=== PATIENT | male | born 1980 | race American Indian/Alaskan Native ===

== ENCOUNTER 2021-08-27 15:21 | Emergency (ER) | payer SELFPAY ==
[2021-08-27] MEDS ORDERED: HYDROcodone/ACETAMINOPHEN 10-325MG TAB PO ONE (15:30)
--- NOTE | 2021-08-27 16:19 | Cat Scan Report ---
CT cervical spine wo con, CT head/brain wo con INDICATION: pain s/p heavy box fell on patient w/ near LOC. TECHNIQUE: CT head and cervical spine without contrast. All CT scans at this location are performed u sing CT dose reduction for ALARA by means of automated exposure control. COMPARISON: None. FINDINGS: HEAD: Intracranial: Roberts-white matter differentiation is maintained. No intracranial hemorrhage. No extra a xial collection.. No hydrocephalus. No herniation. Sinuses: Paranasal sinuses and mastoid air cells are essentially clear. Orbits: Globes are intact Calvarium: No acute fracture. CERVICAL: Alignment: Normal alignment. Vertebrae: No fracture. Vertebral body heights are preserved. C1 and C2 are congruent. Atlantooccipi bang joint is maintained. Spondylolysis: No significant spondylosis. Soft tissues: No prevertebral soft tissue thickening. Additional findings: No significant additional findings. IMPRESSION: 1. No acute intracranial abnormality. 2.No cervical spine fracture. Signer Name: Mike Cazares MD Signed: 08/27/2021 4:15 PM Workstation Name: [id number]
--- NOTE | 2021-08-27 16:23 | Emergency Department Report ---
ED Head Trauma HPI - General Chief complaint: Head Injury Stated complaint: 300 POUND BOX FELL ON HEAD AT WORK Time Seen by Provider: 08/27/21 15:30 Source: patient Mode of arrival: Ambulatory Limitations: No Limitations - History of Present Illness Initial comments: This is a 41-year-old male nontoxic, well nourished in appearance, no acute signs of distress presents to the ED with c/o of acute headache and neck pain x1 day. Patient state that a heavy box weighing about 300 pounds fell to left- sided head yesterday at work. Patient stated had a near LOC experience. Patient denies any other complaints or symptoms. Patient denies any other injuries or trauma. Patient describes headache as diffuse with level of 8 out of 10. Patient denies thunderclap headache. Patient denies any radiation of pain. Patient denies any head trauma. Patient denies any visual changes. Patient denies worse headache. Patient denies any numbness, tingling, fever, chills, nausea, vomiting, chest pain, shortness of breath, stiff neck. Patient denies facial drooping or one sided weakness. Patient denies any radiation of pain. Patient denies any allergies. Patient denies any significant past medical history. MD Complaint: head injury -: days(s) Mechanism of Injury: work related injury Location: parietal (left side) Loss of Consciousness: no Previous Trauma to this Area: No Place: work Radiation: none Severity: mild Severity scale (0 -10): 8 Quality: aching Consistency: constant Provoking factors: none known Other Injuries: none Associated Symptoms: neck pain. denies: confusion, amnesia, repetitive questioning, vision changes, nausea, vomiting, vertigo, syncope, numbness, weakness, tingling - Related Data Previous Rx's Medication Instructions Recorded Last Taken Type Cyclobenzaprine [Flexeril] 10 mg PO QHS PRN #10 tablet 08/27/21 Unknown Rx Naproxen 500 mg PO Q12H PRN #12 tablet 08/27/21 Unknown Rx Allergies/Adverse reactions: Allergies Allergy/AdvReac Type Severity Reaction Status Date / Time No Known Allergies Allergy Unverified 08/27/21 15:27 ED Review of Systems ROS: Stated complaint: 300 POUND BOX FELL ON HEAD AT WORK Other details as noted in HPI Comment: All other systems reviewed and negative Constitutional: denies: chills, fever Eyes: denies: eye pain, eye discharge, vision change ENT: denies: ear pain, throat pain Respiratory: denies: cough, shortness of breath, wheezing Cardiovascular: denies: chest pain, palpitations Endocrine: no symptoms reported Gastrointestinal: denies: abdominal pain, nausea, diarrhea Genitourinary: denies: urgency, dysuria Musculoskeletal: denies: back pain, joint swelling, arthralgia Skin: denies: rash, lesions Neurological: headache. denies: weakness, paresthesias Psychiatric: denies: anxiety, depression Hematological/Lymphatic: denies: easy bleeding, easy bruising ED Past Medical Hx - Past Medical History Previous Medical History?: No - Surgical History Past Surgical History?: No - Medications Home Medications: Home Medications Medication Instructions Recorded Confirmed Last Taken Type Cyclobenzaprine [Flexeril] 10 mg PO QHS PRN #10 tablet 08/27/21 Unknown Rx Naproxen 500 mg PO Q12H PRN #12 tablet 08/27/21 Unknown Rx ED Physical Exam - General Limitations: No Limitations General appearance: alert, in no apparent distress - Head Head exam: Present: atraumatic, normocephalic - Eye Eye exam: Present: normal appearance, PERRL, EOMI - ENT ENT exam: Present: normal exam, normal orophraynx - Neck Neck exam: Present: normal inspection, full ROM. Absent: tenderness, meningismus, lymphadenopathy - Respiratory Respiratory exam: Absent: respiratory distress - Cardiovascular Cardiovascular Exam: Present: regular rate - Extremities Exam Extremities exam: Present: normal inspection, full ROM, normal capillary refill. Absent: tenderness - Back Exam Back exam: Present: normal inspection, full ROM. Absent: tenderness, CVA tenderness (R), CVA tenderness (L), muscle spasm, paraspinal tenderness, vertebral tenderness, rash noted - Neurological Exam Neurological exam: Present: alert, oriented X3, normal gait - Expanded Neurological Exam Expanded Patient oriented to: Present: person, place, time Cranial nerves: EOM's Intact: Normal, Facial Sensation: Normal Cerebellar function: Finger to Nose: Normal Upper motor neuron: Pronator Drift: Normal, Sensory Extinction: Normal Motor strength exam: RUE: 5, LUE: 5, RLE: 5, LLE: 5 Best Eye Response ([place]): (4) open spontaneously Best Motor Response (Michele): (6) obeys commands Best Verbal Response (Michele): (5) oriented Michele Total: 15 - Psychiatric Psychiatric exam: Present: normal affect, normal mood - Skin Skin exam: Present: warm, dry, intact, normal color. Absent: rash ED Course Vital Signs 08/27/21 08/27/21 15:25 15:36 Temperature 99.3 F Pulse Rate 98 H Respiratory 18 16 Rate Blood Pressure 120/76 O2 Sat by Pulse 95 Oximetry - Reevaluation(s) Reevaluation #1: 08/27/21 16:24 Patient is speaking in full sentences with no signs of distress noted. - Radiology Data [facility] [address] [place] [address] Cat Scan Report Signed Patient: MICHAEL LUGO JR MR#: [id number] : 1980 Acct:[id number] Age/Sex: 41 / M ADM Date: 08/27/21 Loc: ED Attending Dr: Ordering Physician: GEO FERREIRA NP Date of Service: 08/27/21 Procedure(s): CT cervical spine wo con Accession Number(s): [id number] cc: GEO FERREIRA NP CT cervical spine wo con, CT head/brain wo con INDICATION: pain s/p heavy box fell on patient w/ near LOC. TECHNIQUE: CT head and cervical spine without contrast. All CT scans at this location are performed using CT dose reduction for ALARA by means of automated exposure control. COMPARISON: None. FINDINGS: HEAD: Intracranial: Roberts-white matter differentiation is maintained. No intracranial hemorrhage. No extra axial collection.. No hydrocephalus. No herniation. Sinuses: Paranasal sinuses and mastoid air cells are essentially clear. Orbits: Globes are intact Calvarium: No acute fracture. CERVICAL: Alignment: Normal alignment. Vertebrae: No fracture. Vertebral body heights are preserved. C1 and C2 are congruent. Atlantooccipital joint is maintained. Spondylolysis: No significant spondylosis. Soft tissues: No prevertebral soft tissue thickening. Additional findings: No significant additional findings. IMPRESSION: 1. No acute intracranial abnormality. 2.No cervical spine fracture. Signer Name: Mike Cazares MD Signed: 08/27/2021 4:15 PM Workstation Name: [email or web address] [email or web address] Transcribed By: CS Dictated By: Mike Cazares MD Electronically Authenticated By: Mike Cazares MD Signed Date/Time: 08/27/211614 DD/ 12 TD/TT: [facility] [address] [place] [address] Cat Scan Report Signed Patient: MICHAEL LUGO JR MR#: [id number] : 1980 Acct:[id number] Age/Sex: 41 / M ADM Date: 08/27/21 Loc: ED Attending Dr: Ordering Physician: GEO FERREIRA NP Date of Service: 08/27/21 Procedure(s): CT head/brain wo con Accession Number(s): [id number] cc: GEO FERREIRA NP CT cervical spine wo con, CT head/brain wo con INDICATION: pain s/p heavy box fell on patient w/ near LOC. TECHNIQUE: CT head and cervical spine without contrast. All CT scans at this location are performed using CT dose reduction for ALARA by means of automated exposure control. COMPARISON: None. FINDINGS: HEAD: Intracranial: Roberts-white matter differentiation is maintained. No intracranial hemorrhage. No extra axial collection.. No hydrocephalus. No herniation. Sinuses: Paranasal sinuses and mastoid air cells are essentially clear. Orbits: Globes are intact Calvarium: No acute fracture. CERVICAL: Alignment: Normal alignment. Vertebrae: No fracture. Vertebral body heights are preserved. C1 and C2 are congruent. Atlantooccipital joint is maintained. Spondylolysis: No significant spondylosis. Soft tissues: No prevertebral soft tissue thickening. Additional findings: No significant additional findings. IMPR ESSION: 1. No acute intracranial abnormality. 2.No cervical spine fracture. Signer Name: Mike Cazares MD Signed: 08/27/2021 4:15 PM Workstation Name: [id number] Transcribed By: CS Dictated By: Mike Cazares MD Electronically Authenticated By: Mike Cazares MD Signed Date/Time: 08/27/211614 DD/ 12 TD/TT: - Medical Decision Making ED course; this is a 41-year-old male that presents with head contusion and neck injury 1- patient was examined by me patient is stable. Patient is notified of the imaging results with no questions noted by the patient. 2- patient received [place] in the ED with stating that his symptoms are improving and are subsiding. Patient stated family member will drive patient home after discharge due to possible drowsiness. 3- patient received naproxen and Flexeril at discharge and was instructed not to operate any machinery while taking Flexeril due to sebaceous drowsiness. 4- patient was instructed to Follow-up with your primary care doctor in 3-5 days or if symptoms worsen such as bladder or bowel stability, chest pain, short of breath, numbness or tingling sensation in extremities, headache, dizziness, visual changes, nausea vomiting, or abdominal pain, return back to emergency room as was possible. 5- At time time of discharge, the patient does not seem toxic or ill in appearance. No acute signs of distress noted. Patient agrees to discharge treatment plan of care. No further questions noted by the patient. - NEXUS Criteria Focal neurological deficit present: No Midline spinal tenderness present: No Altered level of consciousness: No Intoxication present: No Distracting injury present: No NEXUS results: C-Spine can be cleared clinically by these results. Imaging is not required. Critical care attestation.: If time is entered above; I have spent that time in minutes in the direct care of this critically ill patient, excluding procedure time. ED Disposition Clinical Impression: Contusion of head Qualifiers: Encounter type: initial encounter Contusion of head detail: other part of head Qualified Code(s): S00.83XA - Contusion of other part of head, initial encounter Neck injury Qualifiers: Encounter type: initial encounter Qualified Code(s): S19.9XXA - Unspecified injury of neck, initial encounter Disposition: 01 HOME / SELF CARE / HOMELESS Is pt being admited?: No Does the pt Need Aspirin: No Condition: Stable Instructions: Cyclobenzaprine tablets Additional Instructions: Follow-up with your primary care doctor in 3-5 days or if symptoms worsen such as bladder or bowel stability, chest pain, short of breath, numbness or tingling sensation in extremities, headache, dizziness, visual changes, nausea vomiting, or abdominal pain, return back to emergency room as was possible. Take naproxen and Flexeril as prescribed. Do not operate heavy machinery while taking Flexeril due to sedation Prescriptions: Cyclobenzaprine [Flexeril] 10 mg PO QHS PRN #10 tablet PRN Reason: Muscle Spasm Naproxen 500 mg PO Q12H PRN #12 tablet PRN Reason: Pain , Severe (7-10) Referrals: PRIMARY CAREMD [Referring] - 3-5 Days CRISTINO GODFREY MD [Staff Physician] - 3-5 Days Forms: Work/School Release Form(ED) Time of Disposition: 16:26
[2021-08-27 16:44] VITALS: BP 114/83
== END 2021-08-27 16:45 | disposition home or self-care (01) ==
LOC: ED 15:21
DX: S00.83XA Contusion of other part of head, initial encounter (principal); S19.9XXA Unspecified injury of neck, initial encounter; Z79.899 Other long term (current) drug therapy; X50.0XXA Overexertion from strenuous movement or load, initial encounter; X50.9XXA Other and unspecified overexertion or strenuous movements or postures, initial encounter; Y93.89 Activity, other specified; Y92.89 Other specified places as the place of occurrence of the external cause; Y99.8 Other external cause status
CPT/HCPCS: 70450; 72125; 99283